=== PATIENT | male | born 1970 | race Caucasian/White ===

== ENCOUNTER 2020-06-11 20:58 | Emergency (ER) | payer OTHER ==
--- NOTE | 2020-06-11 21:12 | ERPHSYRPT ---
- History of Present Illness Time Seen by Provider: 06/11/20 21:07 Source: patient Exam Limitations: no limitations Physician History: Pt states about 1 hour ago he was at home and accidentally cut his left small finger with a pocket knife while trying to make a marshmallow stick. Pt states he can feel the tip of his left hand digits. Last tetanus is within 5 years. Allergies/Adverse Reactions: oysters Allergy (Severe, Uncoded 06/11/20 21:15) Hives Home Medications: Propranolol HCl 10 mg PO DAILY 06/11/20 [History] - Review of Systems Musculoskeletal: Injury (laceration to left small finger today.) - Nursing Vital Signs Nursing Vital Signs: Initial Vital Signs Temperature 98.4 F 06/11/20 21:06 Pulse Rate 85 06/11/20 21:06 Respiratory Rate 16 06/11/20 21:06 Blood Pressure 130/89 06/11/20 21:06 O2 Sat by Pulse Oximetry 98 06/11/20 21:06 Pain Scale Pain Intensity 2 - Physical Exam General Appearance: alert Shoulder Exam: normal ROM Elbow/Forearm Exam: normal ROM Wrist Exam: normal ROM Hand Exam: normal ROM, laceration (2.5 cm flap laceration of the flexor aspect of the proximal phalanx of the left small finger.) Neuro/Tendon Exam: no evidence tendon injury Mental Status Exam: alert SpO2 Interpretation: normal SpO2: 98 O2 Delivery: Room Air Procedures - Laceration/Wound Repair Left Finger Wound Location: Left, hand Wound Length (cm): 2.5 Wound's Depth, Shape: flap Wound Explored: clean Irrigated: Yes Hibiclens Prep: Yes Anesthesia: 1% Lidocaine Volume Anesthetic (ccs): 1.5 Wound Repaired With: sutures Suture Size/Type: 4-0, prolene Number of Sutures: 13 Layer Closure?: No - Course Nursing assessment & vital signs reviewed: Yes - Radiology Exams Left Other X-ray Interpretation: Interpreted by me (no fx left small finger) Ordered Tests: Active Orders 24 hr Category Date Time Status Prepare for Sutures STAT Care 06/11/20 21:14 Active Sutures STAT Care 06/11/20 21:15 Active Wound Care STAT Care 06/11/20 21:14 Active HAND (MINIMUM 3 VIEWS) Stat Exams 06/11/20 21:12 Taken Medication Summary Discontinued Medications Generic Name Dose Route Start Last Admin Trade Name Freq PRN Reason Stop Dose Admin Cephalexin HCl 500 mg 06/11/20 21:14 06/11/20 21:17 Keflex 500 Mg PO 06/11/20 21:15 500 mg STAT ONE Administration Cephalexin HCl Confirm 06/11/20 21:17 Keflex 500 Mg Administered 06/11/20 21:18 Dose 500 mg .ROUTE .STK-MED ONE Lidocaine HCl 5 ml 06/11/20 22:28 06/11/20 23:16 Xylocaine 1% Hcl 20 Ml Mdv IJ 06/11/20 22:29 5 ml STAT ONE Administration Lidocaine HCl Confirm 06/11/20 23:16 Xylocaine 1% Hcl 20 Ml Mdv Administered 06/11/20 23:17 Dose 5 ml .ROUTE .STK-MED ONE - Progress Progress: improved Discussed with DrOlaf: Tae Counseled pt/family regarding: need for follow-up, rad results - Departure Departure Disposition: Home Clinical Impression: 2.5 cm laceration of left small finger Condition: Stable Critical Care Time: No Referrals: HADLEY PADILLA [NON-STAFF PHY W/O PRIVILEGES] - Instructions: Laceration Repair With Stitches (DC) Additional Instructions: Keep clean & dry. Neosporin & bandage daily to left small finger wound for 10 days. Have sutures removed in 10 days. Prescriptions: Cephalexin Monohydrate [Keflex] 500 mg PO TID #30 capsule
[2020-06-11] MEDS: KEFLEX 500 MG PO ONE ×2 (21:17→23:44)
[2020-06-11] MEDS ORDERED: KEFLEX 500 MG ONE ×2 (21:17→23:41)
[2020-06-11 22:36] VITALS: O2SAT 98
[2020-06-11] MEDS: XYLOCAINE 1% HCL 20 ML MDV IJ ONE (23:16)
[2020-06-11] MEDS ORDERED: XYLOCAINE 1% HCL 20 ML MDV ONE (23:16)
[2020-06-11 23:41] VITALS: BP 113/70; PULSE 61
--- NOTE | 2020-06-12 08:52 | XRAY ---
Indication: 5th finger laceration. Comparison: None 3 view left hand demonstrates old 5th metacarpal head fracture deformity. No other bony, articular, or soft tissue abnormalities.
== END 2020-06-11 23:51 | disposition home or self-care (01) ==
LOC: ED 20:58
DX: S61.217A Laceration without foreign body of left little finger without damage to nail, initial encounter (principal); W26.0XXA Contact with knife, initial encounter; Y93.9 Activity, unspecified; Y92.009 Unspecified place in unspecified non-institutional (private) residence as the place of occurrence of the external cause; Y99.8 Other external cause status
CPT/HCPCS: 12001; 73130; 99284; A9270-GY